=== PATIENT | female | born 1990 | race Two or more races ===

== ENCOUNTER → 2022-05-12 | Outpatient (CLI) | payer OTHER ==
[2022-05-12 18:28] LABS: Basophils # (A) 0.05 X 10*3/uL (0.00-0.10); Basophils % (A) 0.7 %; Eosinophils # (A) 0.14 X 10*3/uL (0.04-0.35); Eosinophils % (A) 2.1 %; HCT 43.8 % (37.2-46.3); HGB 15.3 g/dL (12.0-15.0); Immature Grans, Automated 0.3 %; Lymphocytes % (A) 34.2 %; MCH 31.9 pg (27.0-32.0); MCHC 34.9 g/dL (32.0-37.0); MCV 91.4 fL (80.0-97.0); Mean Platelet Volume 11.1 fL (9.5-12.2); Monocytes # (A) 0.74 X 10*3/uL (0.20-1.00); NRBC Per 100 WBC 0 /100 WBCS (0.0-0.0); Neutrophils # (A) 3.47 X 10*3/uL (1.80-7.70); Neutrophils % (A) 51.7 %; Platelet Count 289 X 10*3/uL (140-440); RBC 4.79 X 10*6/uL (4.10-5.20); RDW 12.3 % (11.5-14.5); WBC 6.72 X 10*3/uL (4.50-10.00)
[2022-05-12 18:42] LABS: African American GFR (CKD) 121.9 (60.0-200.0); Albumin 4.9 g/dL (3.8-4.9); Albumin/Globulin Ratio 1.84 (1.60-3.17); Anion Gap 11.2 mmol/L (10.00-18.00); BUN/Creat Ratio 13.49 Ratio (12.00-20.00); Blood Urea Nitrogen 10.2 mg/dL (9.0-27.0); Calcium 9.8 mg/dL (8.7-10.3); Carbon Dioxide 25.8 mmol/L (20.0-27.5); Globulin 2.7 g/dL (1.6-3.3); Non-African American GFR(CKD) 105.2 (60.0-200.0); Potassium 4.3 mmol/L (3.5-5.5); T4, Free (Free Thyroxine) 1.37 ng/dL (0.800-1.800); Total Bilirubin 0.4 mg/dL (0.30-1.20); Total Protein 7.6 g/dL (6.2-8.2)
[2022-05-12 19:49] LABS: Erythrocyte Sedimentation Rate 3 mm/Hr (0-20)
== END | disposition home or self-care (01) ==
LOC: LABWHC1 10:34
PROVIDERS: ATTEND Internal Medicine Critical Care Medicine
DX: R26.0 Ataxic gait (principal)
CPT/HCPCS: 36415; 80053; 82550; 84439; 84443; 85025; 85652; 86038

== ENCOUNTER → 2022-06-01 | Outpatient (CLI) | payer OTHER ==
--- NOTE | 2022-06-01 22:24 | MR ---
EXAMINATION TYPE: MR brain/cspine wo/w DATE OF EXAM: 06/01/2022 COMPARISON: None. HISTORY: Ataxic gait per order. Trouble walking with tingling of hands and feet A&P and soft tissues per patient. TECHNIQUE: Multiplanar, multisequence images of the brain and brainstem and cervical spine are all performed wit hout and with IV contrast, utilizing 6 mL intravenous Gadavist . Demyelinating disease protocol with additional Sagittal Flair sequence performed of the brain and brainstem and PD sagittal sequences of cervical spine. FINDINGS: BRAIN: FINDINGS: T2 Lesions Present : Yes Approximate Number of Lesions: Approximately 10-20 scattered seen best on PD sagittal sequence Locations Identified : Scattered Size of Reference Lesion(s): 1. 0.9 x 0.7 x 0.9 cm on axial image 19 and sagittal image 92 left frontal lobe deep white matter Enhancing Lesion(s) Present: No T1 Hypointense Lesion(s) Present: Yes Change from Prior: Not applicable Diffusion weighted images demonstrate no evidence of a recent infarct or other diffusion abnormality. There is no worrisome extra-axial fluid collection. The ventricular system and cisternal spaces ar e normal in size and appearance. The brain volume is age appropriate. Midline structures demonstrate normal morphology. The craniocervical junction appears within normal limits. Post contrast images demonstrate no abnormal enhancement. The dural venous sinuses appear pa tent. The visualized sinuses are clear and the globes are intact. IMPRESSION: Mild to borderline moderate nonspecific white matter changes somewhat prominent for patie nt's chronologic age, demyelinating disease needs to be strongly considered. No abnormal enhancing le sions are present. C-SPINE: FINDINGS: Sagittal images of the cervical spine show the craniocervical junction to appear within nor mal limits. The cervical and upper thoracic spinal cord is normal in caliber and signal. Vertebral alignment is straightened. The vertebral body and intravertebral disk heights are normal. The bone marrow signal intensity is within normal limits. No abnormal postcontrast enhancement is seen. Axial images show C2-C3 level to appear within normal limits. Axial images at C3-C4 level show focal left paracentral disc protrusion effacing the anterolateral th ecal sac and causing asymmetric mild to moderate left-sided neural foraminal narrowing axial image 44 . Axial images at C4-C5 level shows broad-based left paracentral disc protrusion mildly effacing the an terior thecal sac and causing moderate left-sided neural foraminal narrowing. Axial images at C5-C6 level shows broad-based right paracentral/foraminal spur disc complex effacing anterolateral thecal sac and ventral surface of the spinal cord which is slightly indented and causin g advanced right-sided neural foraminal narrowing. Axial images at C6-C7 and C7-T1 levels appear within normal limits. IMPRESSION: No MRI evidence for demyelinating disease involvement in the cervical spinal cord. Straig htening of cervical spine with multilevel degenerative changes greatest at C5-C6 level as detailed ab ove.
== END | disposition home or self-care (01) ==
LOC: RADMRIMAIN 20:50
PROVIDERS: ATTEND Internal Medicine Critical Care Medicine
DX: R26.0 Ataxic gait (principal)
CPT/HCPCS: 70553; 72156; A9585